=== PATIENT | male | born 1965 | race African-American/Black ===

== ENCOUNTER 2022-03-16 05:30 | Day surgery (SDC) | payer OTHER ==
[2022-03-14 14:46] VITALS: BMI 24.4
[2022-03-16 10:41] VITALS: TEMP 97.1
[2022-03-16 11:54] VITALS: BP 119/85; PULSE 65; RESP 15
== END 2022-03-16 11:30 | disposition home or self-care (01) ==
LOC: JASU-ENDO 05:30
PROVIDERS: ATTEND Internal Medicine Gastroenterology
PROC: 0DBK8ZX Excision of Ascending Colon, Via Natural or Artificial Opening Endoscopic, Diagnostic (ICD-10-PCS; principal; 2022-03-16 10:00)
DX: Z12.11 Encounter for screening for malignant neoplasm of colon (principal); D12.2 Benign neoplasm of ascending colon; Z86.010 Personal history of colon polyps; K64.8 Other hemorrhoids
CPT/HCPCS: 88305-TC